=== PATIENT | male | born 1945 | race Caucasian/White ===

== ENCOUNTER → 2020-07-24 09:13 | Outpatient (CLI) | payer MEDICARE, SELFPAY ==
--- NOTE | ~2020-07-24 | XR_ITS ---
XR_CERV2-3V_CR DATE: 07/24/2020 09:48 INDICATION: Neck pain TECHNIQUE: AP, open-mouth, lateral, swimmer views COMPARISON: None FINDINGS: C1 and C2 are normally aligned and the odontoid process is intact. There is apparent fusion at the C5-6 interspace There is narrowing or less likely fusion at the C6-7 interspace. No fracture or dislocation or locked facet is evident. No prevertebral soft tissue swelling. Sternal wire sutures are noted. IMPRESSION: Negative. Fusion at C5-C6 Narrowing or fusion at C6-7 interspace Reviewed, dictated and finalized at [facility]. Reviewed, dictated and finalized at location [facility].
== END ==
PROVIDERS: PCP Family Medicine; Visit Provider Family Medicine
DX: M54.2 Cervicalgia (principal); R20.0 Anesthesia of skin; Z98.1 Arthrodesis status
CPT/HCPCS: 72040

== ENCOUNTER 2020-08-27 14:33 | Outpatient (CLI) | payer MEDICARE, SELFPAY ==
--- NOTE | ~2020-08-27 | US_ITS ---
EXAMINATION: US carotid duplex BI DATE: 08/27/2020 15:06 INDICATION: Carotid atherosclerosis. Dizziness and giddiness. TECHNIQUE: Grayscale, color Doppler, and pulsed Doppler images of the cervical carotid arteries were obtained. The degree of vessel stenosis is placed in one of the following categories: normal, <50%, 5 0-69%, >=70% but less than near-occlusion, near-occlusion, or total occlusion. Note that percent sten osis relative to normal distal artery lumen diameter is indirectly measured from velocity measurement s as described by Dung, et al. Radiology 2003; 229:340-346. COMPARISON: None. FINDINGS: RIGHT: The right common carotid artery (CCA) peak systolic velocity (PSV) is 72 cm/s. The right internal car otid artery (ICA) PSV is 56 cm/s. The right ICA end-diastolic velocity (EDV) is 16 cm/s. The right IC A/CCA PSV ratio is 0.8. Grayscale and color Doppler images yield an estimate of <50% diameter reducti on from plaque in the ICA. The external carotid artery (ECA) PSV is 89 cm/s. There is antegrade flow in the right vertebral artery. LEFT: The left CCA PSV is 59 cm/s. The left ICA PSV is 60 cm/s. The left ICA EDV is 23 cm/s. The left ICA/C CA PSV ratio is 1.0. Grayscale and color Doppler images yield an estimate of <50% diameter reduction from plaque in the ICA. The ECA PSV is 55 cm/s. There is antegrade flow in the left vertebral artery. IMPRESSION: 1. <50% stenosis in the right internal carotid artery. 2. <50% stenosis in the left internal carotid artery. Reviewed, dictated and finalized at location [facility].
== END 2020-08-27 14:34 | disposition home or self-care (01) ==
PROVIDERS: PCP Family Medicine; Visit Provider Family Medicine
DX: R42 Dizziness and giddiness (principal); I65.23 Occlusion and stenosis of bilateral carotid arteries
CPT/HCPCS: 93880

== ENCOUNTER → 2021-10-07 07:42 | Outpatient (CLI) | payer MEDICARE, SELFPAY ==
--- NOTE | ~2021-10-07 | XR_ITS ---
EXAMINATION: XR chest 2V 10/07/2021 07:54 INDICATION: Chest pain PROCEDURE: 2 view chest COMPARISON: 11/04/2018 FINDINGS: The lungs are clear. The cardiomediastinal silhouette is within normal limits. There are no pleural effusions. There is no pneumothorax suspected. Status post median sternotomy for CABG. IMPRESSION: 1: NO ACUTE CARDIOPULMONARY DISEASE. Reviewed, dictated and finalized at location [facility].
== END ==
PROVIDERS: PCP Family Medicine; Visit Provider Family Medicine
DX: R09.89 Other specified symptoms and signs involving the circulatory and respiratory systems (principal)
CPT/HCPCS: 71046

== ENCOUNTER 2021-10-14 09:38 | Outpatient (CLI) | payer MEDICARE, SELFPAY ==
--- NOTE | ~2021-10-14 | CT_ITS ---
EXAMINATION: CTA UE RT DATE: 10/14/2021 10:58 INDICATION: Presyncope when lying on the right side. TECHNIQUE: Computed tomographic angiography (CTA) of the right upper extremity was performed with 100 cc of Omnipaque-350 intravenous contrast. Additional 3D reconstructions utilizing rotating maximum i ntensity projection (MIP) were performed. Automated exposure control and iterative reconstruction tristen hnique were employed. The dose-length product was 390.56 mGy-cm. COMPARISON: None FINDINGS: Visualized and cephalad aspect of the aortic arch is normal in caliber no dissection. No evident athe rosclerotic plaque or stenosis along the innominate artery, right common and extracranial internal ca rotid arteries, right subclavian, axillary, brachial, radial, ulnar and dominant intraosseous arterie s with three-vessel runoff to the right wrist. Minimal atherosclerotic plaque without hemodynamically significant stenosis along the extracranial ri ght vertebral artery and at the right carotid siphon. The bilateral vertebral arteries are codominant at the confluence with the normal basilar artery. Bilateral A1 and P1 segments of the anterior and p osterior cerebral arteries and the right middle cerebral artery are patent. Visualized portions of the apices of the lungs are clear. Likely benign 6 mm right thyroid nodule. Me aileen sternotomy wires and surgical clips at the sternal notch likely related to prior coronary artery bypass grafting. 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 Anterior fusion at C 5-C6. Multilevel moderate to severe right-sided cervical and upper thoracic facet osteoarthritis. IMPRESSION: 1. No evident atherosclerotic plaque or significant stenosis in the arteries of the right upper limb beginning at the innominate artery and with three-vessel runoff to the right wrist. Reviewed, dictated and finalized at location A.
[2021-10-14 10:32] LABS: Estimated Glomerular Filt Rate > 60
== END 2021-10-14 09:39 | disposition home or self-care (01) ==
PROVIDERS: PCP Family Medicine; Visit Provider Family Medicine
DX: R20.0 Anesthesia of skin (principal); M54.2 Cervicalgia; R55 Syncope and collapse
CPT/HCPCS: 73206; Q9967

== ENCOUNTER 2021-10-20 09:54 | Outpatient (CLI) | payer MEDICARE, SELFPAY ==
--- NOTE | ~2021-10-20 | CT_ITS ---
. EXAMINATION: CTA neck DATE: 10/20/2021 10:43 INDICATION: Neck pain. Syncope. TECHNIQUE: Computed tomographic angiography (CTA) of the neck was performed with 100 mL Omnipaque-350 intravenous contrast. Automated exposure control and iterative reconstruction technique were employe d. The dose-length product was 535.23 mGy-cm. Maximum intensity projection 3D-reconstructions were cr eated by the technologist on a separate workstation. COMPARISON: Carotid ultrasound 08/27/2020 FINDINGS: There are nodules in the thyroid measuring up to 7 mm, likely not clinically significant. T here are no pathologically enlarged lymph nodes. Right vertebral artery is normal,. There is no signi ficant stenosis of the vertebral arteries. There is plaque in the proximal internal carotid arteries. There is 0% stenosis of the proximal right internal carotid artery relative to normal distal artery lumen diameter (NASCET criteria). There is 0% stenosis of the proximal left internal carotid artery r elative to normal distal artery lumen diameter. There is severe cervical spondylosis. There is interb vipul fusion at C5-C6. IMPRESSION: 1. 0% stenosis of the proximal internal carotid arteries relative to normal distal artery lumen diam eters (NASCET criteria). Reviewed, dictated and finalized at location A. IMPRESSION: 1. 0% stenosis of the proximal internal carotid arteries relative to normal di stal artery lumen diameters (NASCET criteria).
== END 2021-10-20 09:55 | disposition home or self-care (01) ==
PROVIDERS: PCP Family Medicine; Visit Provider Family Medicine
DX: M54.2 Cervicalgia (principal); R20.0 Anesthesia of skin; R55 Syncope and collapse
CPT/HCPCS: 70498; Q9967

== ENCOUNTER 2022-01-26 09:35 | Outpatient (CLI) | payer MEDICARE, SELFPAY ==
--- NOTE | 2022-01-26 11:00 | NEURO_ITS ---
Impression: # Complains of numbness of hands. # Bilateral mild Carpal Tunnel Syndrome, right more than left. # No ulnar neuropathy. # Normal needle/EMG exam. Motor Nerve Conduction Upper Extremities Median Nerve Conduction Velocity (m/sec) Terminal Latency (msec) Response Voltage(mV) Elbow-Wrist Wrist Elbow Wrist Right 53 4.6 2 3 Left 56 4.0 5 5 Ulnar Nerve Conduction Velocity (m/sec) Terminal Latency (msec) Response Voltage(mV) Above Elbow Below Elbow Wrist Above Elbow Below Elbow Wrist Right 53 2.9 7 8 Left 56 2.4 5 8 F-Wave Latency Median (ms) Ulnar (ms) Right 28.9 27.8 Left 28.3 28.0 Sensory Nerve Conduction Upper Extremities Median Nerve Stimulation Terminal Latency (msec) Wrist/Digit Response Voltage (uV) Wrist Right 3.9/3.8 23/25 Left 3.1/3.2 32/50 Ulnar Nerve Stimulation Terminal Latency (msec) Wrist/Digit Response Voltage (uV) Wrist Right 2.5 24 Left 2.5 53 Radial Nerve Terminal Latency (msec) Response Voltage(mV) Right 2.1 10 Left 2.3 33 Left Right Muscles Examined Fibrillation Fasciculation Scarcity Voltage Duration Left Right Left Right Left Right Left Right Left Right Deltoid Biceps X X Brachioradialis Triceps X X Pronator Teres X X Ext Indicis X X Ext Digitorum X X Abd Poll Brev X X 1st Dorsal Interosseus Paraspinals MTDD
== END 2022-01-26 09:36 | disposition home or self-care (01) ==
PROVIDERS: PCP Family Medicine; Visit Provider Psychiatry & Neurology Neurology
DX: R20.0 Anesthesia of skin (principal); G56.03 Carpal tunnel syndrome, bilateral upper limbs
CPT/HCPCS: 95886; 95911

== ENCOUNTER 2022-12-27 13:13 | Outpatient (CLI) | payer MEDICARE, SELFPAY | END 2022-12-27 13:14 | disposition home or self-care (01) | LOC: ANHAUDIO 13:18 | PROVIDERS: PCP Family Medicine; Visit Provider Otolaryngology | DX: H90.3 Sensorineural hearing loss, bilateral (principal); Z90.09 Acquired absence of other part of head and neck | CPT/HCPCS: 92557; 92567 ==

== ENCOUNTER 2023-09-05 03:03 | Day surgery (SDC) | payer MEDICARE, SELFPAY ==
[2023-08-22 11:55] VITALS: BMI 30.2
--- NOTE | 2023-08-22 12:21 | PC.NURSE ---
Spoke with PATIENT regarding medication PLAVIX. Pt. verbalizes understanding that the last dose of PLAVIX is to be taken on 08/27/2024 and the Endoscopist will instruct them when to restart after the procedure.
[2023-09-05 06:31] VITALS: BP 151/78; PULSE 57; RESP 18; TEMP 36.2; O2SAT 99
[2023-09-05] MEDS: LACTATED RINGERS 1,000 ML 150 ML IV CONT (06:39)
--- NOTE | 2023-09-05 06:56 | WPDANESEPPF ---
Anes - Initial Pre Proc Eval Procedure: Operation Date: 09/05/23 07:30 Proposed Procedures p Screening Colonoscopy - Janes Donnelly DO Date/Time: 09/05/23 06:56 Surgeon: Janes Donnelly DO Pre Op Diagnosis: Screening for malignant neoplasm of colon Patient Data Age: 78 Gender: M Height: 1.73 m Weight: 91.2 kg Last Vital Signs Temp 36.2 C L 09/05/23 06:31 Pulse 57 L 09/05/23 06:31 Resp 18 09/05/23 06:31 BP 151/78 H 09/05/23 06:31 Pulse Ox 99 09/05/23 06:31 O2 Del Method Room Air 09/05/23 06:31 Allergies Allergy/AdvReac Type Severity Reaction Status Date / Time No Known Allergies Allergy Verified 09/05/23 06:29 Home Medications Medication Instructions Recorded Confirmed Type aspirin 81 mg tablet,delayed 81 mg PO DAILY 02/11/19 08/22/23 History release atorvastatin 80 mg tablet 80 mg PO DAILY 02/11/19 08/22/23 History flaxseed oil 1,300 mg-omega 3,6,9 1 cap PO DAILY 02/11/19 08/22/23 History 845 mg-117 mg-117 mg capsule mpusiqonsbew-fcynexjm-tlenz acid 1 tablet PO DAILY 02/11/19 08/22/23 History 400 mcg-vit K 20 mcg-lycopene tablet (One Daily Men's 50 Plus Advanced) nitroglycerin 0.4 mg sublingual 0.4 mg sublingual Q5M PRN Angina 02/11/19 08/22/23 History tablet (Nitrostat) clopidogrel 75 mg tablet 75 mg PO DAILY 12/24/20 08/22/23 History albuterol sulfate 90 mcg/actuation 2 puff inhalation Q4H PRN chest 10/04/21 08/22/23 Rx aerosol inhaler congestion #8.5 grams CPAP #1 ea 12/26/22 06/22/23 Rx allopurinol 300 mg tablet See Rx Instructions .Route 05/30/23 08/22/23 Rx .COMPLEX #100 tabs hydrochlorothiazide 25 mg tablet See Rx Instructions .Route 05/30/23 08/22/23 Rx .COMPLEX #100 tabs hydrocodone 5 mg-acetaminophen 325 1 tablet PO Q4-6H PRN pain #20 tabs 06/22/23 08/22/23 Rx mg tablet guaifenesin 600 mg tablet, 600 mg PO Q12H PRN ALLERGIES 08/22/23 08/22/23 History extended release 12 hr (Mucinex) loratadine 10 mg tablet (Claritin) 10 mg PO DAILY PRN ALLERGIES 08/22/23 08/22/23 History omeprazole 40 mg capsule,delayed 40 mg PO DAILY #100 caps 09/01/23 09/05/23 Rx release Patient hx anesthesia problems: none Family hx anesthesia problems: none Results Review: All pre-operative results and documents have been reviewed as part of the pre-operative evaluation. [facility] Past Medical History Medical History Cellulitis of foot (03/16/18) Myocardial infarction (11/04/18) Heart Cauterization stent placed Wears hearing aid Surgical History Surgical History H/O heart bypass surgery (02/10/07) 4 way heart by pass surgery H/O plastic surgery (~06/11/00) Surgery for cut finger History of appendectomy (~05/11/1966) History of cardiac cath (~11/04/18) History of neck surgery (~08/11/02) protruding disc Hx of cataract surgery Hx of cholecystectomy (05/11/05) S/P ear surgery (08/12/11) stapedotomy left ear MRI implant S/P hernia surgery (12/11/08) Family History Family History Grandparent Diabetes mellitus Sibling Diabetes mellitus Acute myocardial infarction, Onset Age: 63 Father Acute myocardial infarction Other Family history of elevated blood lipids Social History Social History Social History: Caffeine- coffee Smoking status: Never smoker Alcohol intake: current Alcohol use details: rarely Substance use: never Substance use type: does not use Lack of Transportation: No Lack of Food: Never True Current Housing: I Have Housing Concerned About Future Housing: No Difficulty Paying Gas/Electric Bills: No Difficulty Paying for Meds: No Education: High School Diploma/GED Difficulty w/ Childcare or Family Care: No Living arrangements: with family Gender identity
--- NOTE | 2023-09-05 07:01 | SUR.PREOP ---
PT'S LEFT EYE SLIGHTLY REDDENED AND WATERY, PT STATES HAPPENS OFTEN DUE TO HAIR ON INSIDE OF EYE LID, PT HAS NO COMPLAINTS OR CONCERNS, DIRECTOR OF CURRICULUM AND INSTRUCTION NOTIFIED PRIOR TO PROCEDURE.
--- NOTE | 2023-09-05 07:26 | PM.IMHP ---
H&P: HPI History of Present Illness Date/Time: 09/05/23 07:26 Chief Complaint: History of colon polyps Narrative: this is a 78-year-old man who presents for colonoscopy. His last colonoscopy was 5 years ago. He denies any hematochezia or melena. He denies family history of colon cancer. Review of Systems Review of Systems: All systems reviewed & are unremarkable except as noted in HPI and below Constitutional: Constitutional: Denies chills, Denies fever(s), Denies headache(s) and Denies weight loss Eyes: Eyes: Denies change in vision ENT: Denies dizziness, Denies headache(s), Denies neck mass and Denies throat swelling Cardiovascular: Cardiovascular: Denies chest pain, Denies lightheadedness and Denies dyspnea Respiratory: Respiratory: Denies cough, Denies dyspnea and Denies wheezing Gastrointestinal: Gastrointestinal: Denies abdominal pain, Denies change in bowel habits, Denies nausea and Denies vomiting Genitourinary: Genitourinary: Denies hematuria and Denies dysuria Musculoskeletal: Musculoskeletal: Reports as per HPI Integumentary/Breasts: Skin/Breast: Reports as per HPI Neurologic: Denies dizziness and Denies headache(s) Allergic/Immunologic: Allergic/Immunologic: Denies throat swelling and Denies wheezing [facility] Past Medical History Medical History Cellulitis of foot (03/16/18) Myocardial infarction (11/04/18) Heart Cauterization stent placed Wears hearing aid Surgical History Surgical History H/O heart bypass surgery (02/10/07) 4 way heart by pass surgery H/O plastic surgery (~06/11/00) Surgery for cut finger History of appendectomy (~05/11/1966) History of cardiac cath (~11/04/18) History of neck surgery (~08/11/02) protruding disc Hx of cataract surgery Hx of cholecystectomy (05/11/05) S/P ear surgery (08/12/11) stapedotomy left ear MRI implant S/P hernia surgery (12/11/08) Family History Family History Grandparent Diabetes mellitus Sibling Diabetes mellitus Acute myocardial infarction, Onset Age: 63 Father Acute myocardial infarction Other Family history of elevated blood lipids Social History Social History Social History: Caffeine- coffee Smoking status: Never smoker Alcohol intake: current Alcohol use details: rarely Substance use: never Substance use type: does not use Lack of Transportation: No Lack of Food: Never True Current Housing: I Have Housing Concerned About Future Housing: No Difficulty Paying Gas/Electric Bills: No Difficulty Paying for Meds: No Education: High School Diploma/GED Difficulty w/ Childcare or Family Care: No Living arrangements: with family Gender identity (if verbalized by the patient): Male Spiritual care concerns: No Meds Home Medications and Allergies Home Medications Medication Instructions Recorded Confirmed Type aspirin 81 mg tablet,delayed 81 mg PO DAILY 02/11/19 08/22/23 History release atorvastatin 80 mg tablet 80 mg PO DAILY 02/11/19 08/22/23 History flaxseed oil 1,300 mg-omega 3,6,9 1 cap PO DAILY 02/11/19 08/22/23 History 845 mg-117 mg-117 mg capsule jgdzjcalcqfo-txzjauky-mmewx acid 1 tablet PO DAILY 02/11/19 08/22/23 History 400 mcg-vit K 20 mcg-lycopene tablet (One Daily Men's 50 Plus Advanced) nitroglycerin 0.4 mg sublingual 0.4 mg sublingual Q5M PRN Angina 02/11/19 08/22/23 History tablet (Nitrostat) clopidogrel 75 mg tablet 75 mg PO DAILY 12/24/20 08/22/23 History albuterol sulfate 90 mcg/actuation 2 puff inhalation Q4H PRN chest 10/04/21 08/22/23 Rx aerosol inhaler congestion #8.5 grams CPAP #1 ea 12/26/22 06/22/23 Rx allopurinol 300 mg tablet See Rx Instructions .Route 05/30/23 08/22/23 Rx .COMPLEX #100 tabs hydrochloroth
[2023-09-05 07:53] VITALS: BP 110/64; PULSE 48; RESP 20; O2SAT 98
[2023-09-05 08:05] VITALS: BP 109/66; PULSE 47; RESP 20; O2SAT 99
[2023-09-05 08:20] VITALS: BP 129/73; PULSE 45; RESP 14; O2SAT 100
== END 2023-09-05 08:30 | disposition home or self-care (01) ==
PROVIDERS: PCP Family Medicine; Visit Provider Surgery
PROC: 0DJD8ZZ Inspection of Lower Intestinal Tract, Via Natural or Artificial Opening Endoscopic (ICD-10-PCS; CPT 45378; principal; 2023-09-05 07:30)
DX: Z12.11 Encounter for screening for malignant neoplasm of colon (principal); D12.0 Benign neoplasm of cecum; K57.30 Diverticulosis of large intestine without perforation or abscess without bleeding; I25.2 Old myocardial infarction
CPT/HCPCS: 45380; 88305; J2001; J2704; J7120